=== PATIENT | female | born 1965 | race Asian ===

== ENCOUNTER → 2020-11-26 13:36 | Outpatient (CLI) | payer OTHER, SELFPAY ==
[2020-11-26] MEDS: COVID-19 VACC #1, MRNA(MOD) 100 MCG/0.5 ML VIAL IM (13:47)
== END ==
PROVIDERS: Visit Provider Internal Medicine
DX: Z23 Encounter for immunization (principal)
CPT/HCPCS: 0011A; 91301

== ENCOUNTER → 2020-12-24 13:31 | Outpatient (CLI) | payer OTHER, SELFPAY ==
[2020-12-24] MEDS: COVID-19 VACC #2, MRNA(MOD) 100 MCG/0.5 ML VIAL IM (13:36)
== END ==
PROVIDERS: Visit Provider Internal Medicine
DX: Z23 Encounter for immunization (principal)
CPT/HCPCS: 0012A; 91301

== ENCOUNTER → 2021-04-21 14:01 | Outpatient (CLI) | payer OTHER, SELFPAY ==
[2021-04-21 17:24] LABS: COVID19 -Nasal RAPID Negative (Negative)
== END ==
PROVIDERS: Visit Provider Physician Assistant
DX: Z20.822 Contact with and (suspected) exposure to COVID-19 (principal); R05 Cough; R52 Pain, unspecified
CPT/HCPCS: 87635

== ENCOUNTER → 2024-01-03 16:31 | Outpatient (CLI) | payer OTHER, SELFPAY ==
--- NOTE | 2024-01-03 16:32 | DI.RAD.S_ITS ---
PROCEDURE: XR CHEST 2V INDICATIONS: Cough TECHNIQUE: 2 views of the chest were acquired. COMPARISON: None. FINDINGS: Surgical changes and devices: None. Lungs and pleura: Lungs are clear. No pleural effusions or pneumothorax. Mediastinum: Mediastinal contours are normal. Heart size is normal. Bones and chest wall: No suspicious bony abnormalities. Soft tissues appear unremarkable. IMPRESSION: No consolidation. Dictated by: Enmanuel Mejia M.D. on 01/03/2024 at 20:02 Approved by: Enmanuel Mejia M.D. on 01/03/2024 at 20:03
== END ==
PROVIDERS: Referring Provider Nurse Practitioner Family; Visit Provider Nurse Practitioner Family
DX: R05.9 Cough, unspecified (principal)
CPT/HCPCS: 71046

== ENCOUNTER → 2024-01-13 16:43 | Outpatient (CLI) | payer OTHER, SELFPAY ==
--- NOTE | 2024-01-13 16:45 | DI.RAD.S_ITS ---
PROCEDURE: XR ANKLE RT MIN 3V INDICATIONS: Right ankle injury TECHNIQUE: 3 views of the ankle were acquired. COMPARISON: None. FINDINGS: Bones: No fractures or dislocations. Ankle mortise is normally aligned. No suspicious bony lesions. Soft tissues: Soft tissue swelling over lateral malleolus is seen. No tibiotalar joint effusion. Achilles tendon appears normal. IMPRESSION: No acute ankle fracture or dislocation. Lateral ankle soft tissue swelling. Ankle mortise is congruent. Dictated by: Luther Hylton M.D. on 01/13/2024 at 17:12 Approved by: Luther Hylton M.D. on 01/13/2024 at 17:13
== END ==
PROVIDERS: Referring Provider Physician Assistant Surgical; Visit Provider Physician Assistant Surgical
DX: S99.911A Unspecified injury of right ankle, initial encounter (principal); M25.471 Effusion, right ankle; X58.XXXA Exposure to other specified factors, initial encounter
CPT/HCPCS: 73610

== ENCOUNTER 2024-11-20 15:53 | Emergency (ER) | payer OTHER, SELFPAY ==
[2024-11-20 15:59] VITALS: BP 135/87; PULSE 85; RESP 18; TEMP 37; O2SAT 97; BMI 19.7
--- NOTE | 2024-11-20 16:25 | ED.GIBLEED ---
HPI - GI Bleed General Chief complaint: GI Bleed Stated complaint: anal pain Time Seen by Provider: 11/20/24 16:25 Source: patient Mode of arrival: Ambulatory History of Present Illness HPI Narrative: 59-year-old female presents to the ED with 1 week of rectal bleeding with defecation. Patient states she did have some hemorrhoids 5 years ago, however has been in control since then. Patient states that last week she started experiencing rectal pain from hemorrhoids, felt the enlarged hemorrhoids and saw some bleeding with defecation. No chest pain, shortness of breath, fever, chills, nausea, vomiting, lightheadedness, dizziness, syncope, abdominal pain, dysuria. Patient's last colonoscopy was in 2021 with the finding of 2 benign polyps, she is scheduled for another colonoscopy later this year. patient endorses constipation. Related Data Previous Rx's Medication Instructions Recorded benzonatate 200 mg capsule 200 mg PO BID PRN cough #28 caps 01/03/24 hydrocortisone acetate 25 mg 25 mg LA BID 6 days #12 ea 11/20/24 rectal suppository Allergies Allergy/AdvReac Type Severity Reaction Status Date / Time No Known Drug Allergies Allergy Verified 01/13/24 16:03 Review of Systems Constitutional Constitutional: Denies chills, Denies fatigue, Denies fever(s), Denies frequent falls, Denies lethargy and Denies weakness Eyes Eyes: Denies change in vision, Denies eye discharge, Denies irritation and Denies loss of vision ENT Ears, Nose, Mouth, and Throat: Denies change in voice, Denies dizziness, Denies neck pain, Denies sore throat and Denies throat swelling Cardiovascular Cardiovascular: Denies chest pain, Denies irregular heart rhythm, Denies lightheadedness, Denies palpitations, Denies dyspnea, Denies dyspnea on exertion and Denies orthopnea Respiratory Respiratory: Denies cough, Denies dyspnea, Denies dyspnea on exertion and Denies wheezing Gastrointestinal Gastrointestinal: Denies abdominal pain, Denies change in bowel habits, Denies diarrhea, Denies nausea and Denies vomiting Comments: constipation, rectal bleeding with defecation, rectal pain, hemorrhoids Musculoskeletal Musculoskeletal: Denies neck pain and Denies numbness Integumentary/Breasts Skin/Breast: Denies pruritus, Denies erythema, Denies rash and Denies wounds Neurologic Neurologic: Denies behavioral changes, Denies confusion, Denies dizziness, Denies frequent falls, Denies loss of vision, Denies numbness and Denies weakness Psychiatric Psychiatric: Denies anxiety, Denies behavioral changes, Denies confusion, Denies depression, Denies homicidal ideation and Denies suicidal ideation Endocrine Endocrine: Denies fatigue, Denies flushing and Denies palpitations Hematologic/Lymphatic Hematologic/Lymphatic: Denies easy bruising Allergic/Immunologic Allergic/Immunologic: Denies urticaria, Denies throat swelling and Denies wheezing Patient History Smoking Status: Never smoker Exam Narrative Exam Narrative: Const General:?cooperative, healthy appearing and comfortable [facility] Head:?normal to inspection Ears:?hearing grossly normal bilaterally Nose:?external nose normal Face and sinus:?normal facial exam and sinuses nontender Mouth:?oral mucosae normal Throat:?posterior oropharynx normal Eyes General:?appearance normal, both eyes and all related structures Neck Neck:?normal visual inspection and no lymphadenopathy noted Resp Effort & Inspection:?normal respiratory effort Auscultation:?clear to auscultation bilaterally Cardio Rate:?regular rate Rhythm:?regular rhythm GI Abdomen is soft, nondistended, nontender to palpation. External hemorrhoids. Neuro General:?patient alert, patient awake and patient oriented x3 Initial Vital Signs Initial Vital Signs: Vital Signs Temperature 98.6 F 11/20/24 15:59 Pulse Rate 85 11/20/24 15:59 Respiratory Rate 18 11/20/24 15:59 Blood Pressure 135/87 11/20/24 15:59 Pulse Oximetry 97 11/20/24 15:59 Oxygen Delivery Method Room Air 11/20/24 15:59 Course Vital Signs Vital signs: Vital Signs - 8 hr 11/20/24 15:59 Temperature 98.6 F Pulse Rate 85 Respiratory Rate 18 Blood Pressure 135/87 Pulse Oximetry 97 Oxygen Delivery Method Room Air MDM - GI Bleed MDM Narrative Medical decision making narrative: 59-year-old female presents to the ED with 1 week of rectal bleeding with defecation. Physical exam is consistent with hemorrhoids. Prescribed hydrocortisone suppositories. Recommend MiraLax, Dulcolax, Sitz baths, plenty of hydration, fiber intake. Recommend follow-up with GI and PCP. ED return precautions discussed with patient. Patient verbalized understanding. Medical records reviewed: Yes Discharge Plan Departure Patient Disposition: Home Clinical Impression: Hemorrhoids Instructions: DI for Hemorrhoids Activity Restrictions/Additional Instructions: You were evaluated in the ED today for rectal bleeding. It appears you have hemorrhoids which can be quite painful. You are being prescribed a hydrocortisone suppository to apply in the rectum to reduce swelling and pain. It is also recommended that you take MiraLax, Dulcolax, sitz baths daily for the next 4 weeks. Please continue to drink lots of water and increase your fiber intake by eating lots of vegetables, beans and fruit. It is advised to avoid straining when passing stool. It seems that you are due for your next colonoscopy this year, please ensure to schedule it as soon as possible. Please follow-up with your PCP as soon as possible. Return to the ED if you have worsening symptoms. Prescriptions: New hydrocortisone acetate 25 mg suppository 25 mg LA BID 6 Days Qty: 12 0RF No Action benzonatate 200 mg capsule 200 mg PO BID PRN (Reason: cough) Qty: 28 0RF Stand Alone Forms: Patient Portal/API/Survey
== END 2024-11-20 17:13 | disposition home or self-care (01) ==
PROVIDERS: Emergency Provider Student in an Organized Health Care Education/Training Program
DX: K64.9 Unspecified hemorrhoids (principal)
CPT/HCPCS: 99281